=== PATIENT | male | born 1955 | race Caucasian/White ===

== ENCOUNTER 2020-07-20 17:18 | Emergency (ER) | payer OTHER, SELFPAY ==
--- NOTE | ~2020-07-20 | XR_ITS ---
EXAMINATION: XR chest 2V DATE: 07/20/2020 17:55 INDICATION: Left-sided chest pain TECHNIQUE: PA and lateral views of the chest were obtained. COMPARISON: Chest radiograph dated 09/15/2013 FINDINGS: The lungs remain clear with no focal airspace opacities, pulmonary edema, pleural effusion or pneumot horax. The cardiomediastinal silhouette is normal. Cholecystectomy clips in right upper quadrant. Vis ualized bones and soft tissues are unremarkable. IMPRESSION: 1. No acute cardiopulmonary disease. Reviewed, dictated and finalized at location [facility]
[2020-07-20 17:20] VITALS: BP 150/84; PULSE 68; RESP 22; TEMP 37; O2SAT 100
--- NOTE | 2020-07-20 17:23 | ECG_ITS ---
Measurements Intervals [place] Rate: 68 P: 60 GA: 142 QRS: 28 QRSD: 82 T: 42 QT: 385 QTc: 411 Interpretive Statements SINUS RHYTHM BASELINE ARTIFACT- I, II, III, AVR, AVL, AVF, V1, V3 NORMAL ECG Electronically Signed On 07-20-2020 18:54:21 BACKEND DEVELOPER by Eliceo Mitchell D.O.
[2020-07-20 17:34] VITALS: PULSE 69
--- NOTE | 2020-07-20 17:35 | PC.NURSE ---
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
[2020-07-20 18:03] LABS: Basophils Percent Auto 0.5 % (0.2-1.2); Eosinophils Absolute Auto 0.1 K/mm3 (0-0.3); Eosinophils Percent Auto 1.3 % (0-4.4); Hematocrit 41.6 % (42.0-52.0); Hemoglobin 15.2 g/dL (14.0-18.0); Immature Granulocyte Absolute 0.01 K/mm3 (0.00-0.031); Immature Granulocyte Percent A 0.1 % (0-0.5); Lymphocytes Absolute Auto 2.74 K/mm3 (0.9-3.2); Lymphocytes Percent Auto 31.2 % (18.3-44.2); Mean Corpuscular HGB Conc 36.5 g/dl (32-36); Mean Corpuscular Volume 95.9 fl (80-100); Mean Platelet Volume 9.3 fl (7.4-10.4); Monocytes Absolute Auto 0.8 K/mm3 (0.1-0.6); Monocytes Percent Auto 8.8 % (2.6-8.5); Neutrophils Absolute Auto 5.1 K/mm3 (1.3-6.7); Neutrophils Percent Auto 58.1 % (45.5-73.1); Platelet Count Result 315 k/mm3 (150-375); Red Blood Count 4.34 M/mm3 (4.6-6.20); Red Cell Distribution Width 11.2 % (11.5-14.5); White Blood Count 8.8 K/mm3 (4.5-10.0)
[2020-07-20 18:15] LABS: Anion Gap 9 mmol/L (8-16); Blood Urea Nitrogen 14 mg/dL (9-20); Calcium 9.4 mg/dL (8.4-10.2); Carbon Dioxide 33 mmol/L (22-30); Chloride 98 mmol/L (98-107); Estimated CRCL calculation 75 ml/min; Estimated Glomerular Filt Rate > 60; Glucose 98 mg/dL (75-110); Potassium 3.7 mmol/L (3.4-5.0); Sodium 140 mmol/L (137-145)
--- NOTE | 2020-07-20 18:15 | ED.GENADULT ---
HPI - General Adult General Chief complaint: Chest Pain Stated complaint: chest pain Time Seen by Provider: 07/20/20 17:26 Source: patient Mode of arrival: ambulatory Limitations: no limitations History of Present Illness HPI narrative: Patient presents with chief complaint of left sided anterior chest pain that has been intermittent over the past 2 weeks. Patient states that over the past week it has worsened and become more persistent and painful with some radiation into his left pectoral muscle. He reports it worsens with exertion and improves with rest and ibuprofen. Patient denies diaphoresis, palpitations, nausea, vomiting. He denies history of stroke, ND, hypertension, family history of ND. His medical issues are borderline high triglycerides and GERD. Patient states he is a former smoker, stopped 25 years ago. Related Data Home Medications Medication Instructions Recorded Confirmed famotidine 40 mg PO DAILY 08/12/19 08/12/19 [id number] oil [Avery-3 1 cap PO DAILY 08/12/19 08/14/19 Fish Oil] pantoprazole 40 mg PO DAILY 08/12/19 08/14/19 Allergies Allergy/AdvReac Type Severity Reaction Status Date / Time Penicillins Allergy Intermediate Rash Verified 08/14/19 13:13 Review of Systems Review of Systems: Narrative: CONSTITUTIONAL: Denies fever, chills, or sweats. EYES: Denies visual changes, redness, or discharge. ENT: Denies rhinorrhea, congestion, sore throat, or otalgia. CARDIOVASCULAR: Reports chest pain, Denies palpitations, or edema. RESPIRATORY: Denies cough or dyspnea. GASTROINTESTINAL: Denies abdominal pain, nausea, vomiting, or diarrhea. GENITOURINARY: Denies dysuria or hematuria. SKIN: Denies rash or itching. MUSCULOSKELETAL: Denies back pain, myalgia, or joint pain NEUROLOGIC: Denies headache, numbness, dizziness, or weakness. PSYCHIATRIC: Denies anxiety or depression. [facility] Past Medical History Medical History (Updated 07/20/20 @ 21:21 by Andrew Wray PA-C) Constipation GERD (gastroesophageal reflux disease) High triglycerides Surgical History Surgical History History of cholecystectomy History of craniotomy Family History Family History Sibling Family history of transient ischemic attacks Father Patient's father is in good health Social History Social History Smoking status: Former smoker Smoking end date: 09/03/97 Alcohol intake: never Exam Narrative: Exam Narrative: GENERAL: Well-appearing, well-nourished. HEAD: Normocephalic, atraumatic. EYES: PERRLA and EOMI. NECK: Supple. No adenopathy or masses. No vertebral tenderness or loss of ROM. CHEST: Mild tenderness to palpation to chest wall. Clear to auscultation. No respiratory distress. No wheezes rales or rhonchi HEART: Regular rate and rhythm. Normal peripheral pulses. ABDOMEN: Soft, nontender, nondistended, normal active bowel sounds. No bruises noted. EXTREMITIES: No acute changes in ROM. No edema. SKIN: Warm, dry, no rash. NEURO: No focal deficits. Alert and oriented x3. PSYCH: Normal mood and affect. Course Vital Signs Vital signs: Vital Signs Temperature 98.6 F 07/20/20 17:20 Pulse Rate 68 07/20/20 17:20 Respiratory Rate 22 H 07/20/20 17:20 Blood Pressure 150/84 H 07/20/20 17:20 Pulse Oximetry 100 07/20/20 17:20 Temperature 98.6 F 07/20/20 17:20 Pulse Rate 60 07/20/20 19:59 Respiratory Rate 16 07/20/20 19:59 Blood Pressure 125/85 07/20/20 19:59 Pulse Oximetry 98 07/20/20 19:59 Medical Decision Making MDM Narrative Medical decision making narrative: Patient's heart score is between 1 and 2. His vitals have remained stable his EKG is normal his initial and 3-hour troponin are normal as well. Patient is instructed to follow-up with his primary care for further investigation into his symp
[2020-07-20 18:27] LABS: Troponin I < 0.012 ng/mL (0.000-0.034)
[2020-07-20 18:47] LABS: Prothrombin Time 13.9 Seconds (11.1-14.7)
[2020-07-20 18:48] LABS: Partial Thromboplastin Time 35.3 SECONDS (22.3-36.8)
--- NOTE | 2020-07-20 19:05 | PC.NURSE ---
REPORT TO DELMA JAMIL AT THIS TIME SHE HAS ASSUMED PT CARE.
[2020-07-20 19:59] VITALS: BP 125/85; PULSE 60; RESP 16; O2SAT 98
[2020-07-20 21:03] LABS: Troponin I < 0.012 ng/mL (0.000-0.034)
[2020-07-20 21:34] VITALS: BP 125/84; PULSE 67; RESP 16; TEMP 36.8; O2SAT 99
== END 2020-07-20 21:34 | disposition home or self-care (01) ==
PROVIDERS: Emergency Provider Emergency Medicine; PCP Internal Medicine
DX: R07.9 Chest pain, unspecified (principal); K21.9 Gastro-esophageal reflux disease without esophagitis; Z87.891 Personal history of nicotine dependence
CPT/HCPCS: 36415; 71046; 80048; 84484; 85025; 85610; 85730; 93005; 99284

== ENCOUNTER 2020-09-24 08:22 | Outpatient (CLI) | payer OTHER, SELFPAY ==
--- NOTE | ~2020-09-24 | US_ITS ---
EXAMINATION: US right upper quadrant EXAM DATE: 09/24/2020 09:12 INDICATION: GERD/weight loss/epigastric pain . TECHNIQUE: Multiple grayscale and Doppler images of the abdomen right upper quadrant were obtained (b y a technologist who performed the scan) and subsequently reviewed. Comparison is made to prior exami nation from 10/25/2018. FINDINGS: The pancreatic head and body are normal in appearance. The pancreatic tail is not visualized. The l iver has normal echogenicity and contour. There are no focal liver lesions identified. There is no evidence of intrahepatic biliary duct dilation. Portal venous flow was seen in the hepatopedal, nor mal direction and has normal Doppler waveform. No right-sided hydronephrosis. Common bile duct measures 3 mm, which is normal. The gallbladder fossa is unremarkable. IMPRESSION: Unremarkable abdominal ultrasound exam. Reviewed, dictated and finalized at location [facility]. [facility]
== END 2020-09-24 08:23 | disposition home or self-care (01) ==
PROVIDERS: PCP Internal Medicine; Visit Provider Internal Medicine
DX: K21.9 Gastro-esophageal reflux disease without esophagitis (principal); R63.4 Abnormal weight loss; R10.9 Unspecified abdominal pain
CPT/HCPCS: 76705